=== PATIENT | female | born 1950 | race Caucasian/White ===

== ENCOUNTER 2020-06-29 10:38 | Emergency (ER) | payer MEDICARE, OTHER ==
[2020-06-29] MEDS ORDERED: NORMAL SALINE 1000 ML 1,000 ML IV ONE (11:01)
--- NOTE | 2020-06-29 11:01 | ER Document Report ---
ED Medical Screen (RME) - General Chief Complaint: Altered Mental Status Stated Complaint: ALTERED MENTAL Time Seen by Provider: 06/29/20 10:55 Primary Care Provider: JEANETTE LACY NP [Primary Care Provider] - Follow up as needed Mode of Arrival: Ambulatory Notes: Patient presents stating that she is been under a lot of stress recently and has been fasting for the past week not eating and not taking her medications appropriately. Patient complains of fast heart rate with leg cramps. Patient denies any chest pain or shortness of breath. Patient very anxious in triage. Patient states she was not taking her medications because she was fasting although she took some of her medications although is unable to say which ones she took. I have greeted and performed a rapid initial assessment of this patient. A comprehensive ED assessment and evaluation of the patient, analysis of test results and completion of the medical decision making process will be conducted by additional ED providers. TRAVEL OUTSIDE OF THE [place] IN LAST 30 DAYS: No - Related Data Allergies/Adverse Reactions: hyoscyamine Allergy (Verified 06/29/20 10:56) Physical Exam - Vital signs Vitals: Temp Pulse Resp BP Pulse Ox 98.1 F 132 H 16 182/99 H 98 06/29/20 10:42 06/29/20 10:42 06/29/20 10:42 06/29/20 10:42 06/29/20 10:42 - General General appearance: Alert, Anxious In distress: Mild Notes: Tachycardia, dry mucous membranes Course - Vital Signs Vital signs: Temp Pulse Resp BP Pulse Ox 98.1 F 132 H 16 182/99 H 98 06/29/20 10:42 06/29/20 10:42 06/29/20 10:42 06/29/20 10:42 06/29/20 10:42 Doctor's Discharge - Discharge Referrals: JEANETTE LACY NP [Primary Care Provider] - Follow up as needed
--- NOTE | 2020-06-29 11:35 | RADIOLOGY REPORT (SQ) ---
EXAM DESCRIPTION: CHEST SINGLE VIEW IMAGES COMPLETED DATE/TIME: 06/29/2020 10:16 am REASON FOR STUDY: palpitations. Altered mental status. COMPARISON: None. EXAM PARAMETERS: NUMBER OF VIEWS: One view. TECHNIQUE: Single frontal radiographic view of the chest acquired. RADIATION DOSE: NA LIMITATIONS: None. FINDINGS: LUNGS AND PLEURA: No opacities, masses or pneumothorax. No pleural effusion. MEDIASTINUM AND HILAR STRUCTURES: No masses. Contour normal. HEART AND VASCULAR STRUCTURES: Heart normal in size. Normal vasculature. BONES: No acute findings. HARDWARE: None in the chest. OTHER: No other significant finding. IMPRESSION: NO ACUTE RADIOGRAPHIC FINDING IN THE CHEST. TECHNICAL DOCUMENTATION: JOB ID: [id number] [employer]- All Rights Reserved Reading location - IP/workstation name: [email or web address]
--- NOTE | 2020-06-29 12:01 | EKG REPORT ---
SEVERITY:- ABNORMAL ECG - SINUS TACHYCARDIA PROBABLE LEFT ATRIAL ABNORMALITY LEFT VENTRICULAR HYPERTROPHY : Confirmed by: Nakul Chicas MD 29-Jun-2020 12:00:27
[2020-06-29 12:07] LABS: ABSOLUTE BASOPHILS # (AUTO) 0.1 10^3/uL (0.0-0.2); ABSOLUTE EOSINOPHILS # (AUTO) 0.1 10^3/uL (0.0-0.6); ABSOLUTE LYMPHOCYTES (AUTO) 1.3 10^3/uL (0.5-4.7); ABSOLUTE MONOCYTES (AUTO) 0.7 10^3/uL (0.1-1.4); ABSOLUTE NEUT (AUTO) 7.4 10^3/uL (1.7-8.2); BASOPHILS % (AUTO) 0.7 % (0-2); EOSINOPHILS % (AUTO) 0.6 % (0-6); HEMATOCRIT 36.2 % (36.0-47.0); HEMOGLOBIN 12.5 g/dL (12.0-15.5); LYMPHOCYTES % (AUTO) 13.8 % (13-45); MEAN CORPUSCULAR HEMOGLOBIN 28.2 pg (27.0-33.4); MEAN CORPUSCULAR HGB CONC 34.6 g/dL (32.0-36.0); MEAN CORPUSCULAR VOLUME 82 fl (80-97); MONOCYTES % (AUTO) 7.4 % (3-13); PLATELET COUNT 322 10^3/uL (150-450); RED BLOOD COUNT 4.44 10^6/uL (3.72-5.28); RED CELL DISTRIBUTION WIDTH 13.2 % (11.5-14.0); SEGMENTED NEUTROPHILS % (AUTO) 77.5 % (42-78); TOTAL CELLS COUNTED % (AUTO) 100 %; WHITE BLOOD COUNT 9.5 10^3/uL (4.0-10.5)
[2020-06-29 12:16] LABS: APPEARANCE,URINE SLIGHTLY-CLOUDY; BILIRUBIN,URINE NEGATIVE (NEGATIVE); COLOR,URINE YELLOW; GLUCOSE, URINE >=500 mg/dL (NEGATIVE); KETONES,URINE TRACE mg/dL (NEGATIVE); LEUKOCYTE ESTERASE,URINE NEGATIVE (NEGATIVE); NITRITE,URINE NEGATIVE (NEGATIVE); PROTEIN,URINE 30 mg/dL (NEGATIVE); URINE SPECIFIC GRAVITY 1.026; UROBILINOGEN,URINE NEGATIVE mg/dL (<2.0)
[2020-06-29 12:24] LABS: ALBUMIN 4.4 g/dL (3.5-5.0); ALKALINE PHOSPHATASE 77 U/L (38-126); ANION GAP 9 (5-19); ASPARTATE AMINO TRANSFERASE 36 U/L (14-36); BILIRUBIN,DIRECT 0.3 mg/dL (0.0-0.4); BILIRUBIN,TOTAL 0.4 mg/dL (0.2-1.3); BLOOD UREA NITROGEN 19 mg/dL (7-20); CALCIUM 9.5 mg/dL (8.4-10.2); CARBON DIOXIDE 22 mmol/L (22-30); CHLORIDE 96 mmol/L (98-107); CREATINE KINASE 821 U/L (30-135); GLUCOSE 150 mg/dL (75-110); POTASSIUM 4.2 mmol/L (3.6-5.0); TOTAL PROTEIN 7.4 g/dL (6.3-8.2)
[2020-06-29] MEDS ORDERED: LORAZEPAM 1 MG TABLET PO ONE (12:25)
--- NOTE | 2020-06-29 12:29 | ER Document Report ---
ED Cardiac - General Chief Complaint: Palpitations Stated Complaint: ALTERED MENTAL Time Seen by Provider: 06/29/20 10:55 Primary Care Provider: JEANETTE LACY NP [Primary Care Provider] - Follow up as needed Mode of Arrival: Ambulatory Notes: CHIEF COMPLAINT: Leg cramping, tachycardia HPI: 70-year-old female presenting for leg cramping and tachycardia. Patient states that she was fasting for the last week without eating or drinking as part of a "spiritual thing". Patient was brought in today because of elevated heart rate at her doctor's office as well as leg cramping. indicates that patient has been somewhat agitated over the last day or 2. Patient continually repeating that she does not want to be sent to [facility] because she is "not crazy". She denies chest pain shortness of breath abdominal pain. ROS: See HPI - all other systems were reviewed and are otherwise negative Constitutional: no fever Eyes: no drainage, no blurred vision ENT: no runny nose, no sore throat Cardiovascular: no chest pain Resp: no SOB, no cough GI: no vomiting, no diarrhea, no abdominal pain : no dysuria Integumentary: no rash Allergy: no hives Musculoskeletal: no extremity pain or swelling Neurological: no numbness/tingling, no weakness MEDICATIONS: I agree with the patient medications as charted by the RN. ALLERGIES: I agree with the allergies as charted by the RN. PAST MEDICAL HISTORY/PAST SURGICAL HISTORY: Reviewed and agree as charted by RN. SOCIAL HISTORY: Reviewed and agree as charted by RN. FAMILY HISTORY: No significant familial comorbid conditions directly related to patient complaint EXAM: Reviewed vital signs as charted by RN. CONSTITUTIONAL: Alert and oriented and responds appropriately to questions. Well-appearing; well-nourished HEAD: Normocephalic; atraumatic EYES: PERRL; Conjunctivae clear, sclerae non-icteric ENT: normal nose; no rhinorrhea; moist mucous membranes; pharynx without lesions noted, no uvula edema or deviation, no tonsillar hypertrophy, phonation normal NECK: Supple without meningismus; non-tender; no cervical lymphadenopathy, no masses CARD: Patient is tachycardic with a heart rate of 125 on the monitor; no murmurs, no clicks, no rubs, no gallops; symmetric distal pulses RESP: Normal chest excursion without splinting or tachypnea; breath sounds clear and equal bilaterally; no wheezes, no rhonchi, no rales, pulse oximetry 95% on room air not hypoxic ABD/GI: Normal bowel sounds; non-distended; soft, non-tender, no rebound, no guarding; no palpable organomegaly or masses. BACK: The back appears normal and is non-tender to palpation, there is no CVA tenderness EXT: Normal ROM in all joints; non-tender to palpation; no cyanosis, no effusions, no edema SKIN: Normal color for age and race; warm; dry; good turgor; no acute lesions noted NEURO: Moves all extremities equally; Motor and sensory function intact PSYCH: The patient's mood and manner are agitated and repetitive. Grooming and personal hygiene are appropriate. MDM: EKG sinus tachycardia with a ventricular rate of 131. Left ventricular hypertrophy noted abnormal EKG. DC 144 QT 284, QTc 420. Interpreted by emergency department physicians. Very difficult to obtain history from the patient she is very distracted, continually repeating that she does not want to be sent to a psychiatric facility. She states that she has been off of her me dications which include Synthroid and her blood pressure medications and Metformin for the last week while fasting. States she believes she is just dehydrated. Initial screening labs ordered by triage process. Will continue IV fluids, give Ativan for patient's agitation awaiting lab results to reassess TRAVEL OUTSIDE OF THE [place] IN LAST 30 DAYS: No - Related Data Allergies/Adverse Reactions: hyoscyamine Allergy (Verified 06/29/20 10:56) Past Medical History - Social History Smoking Status: Never Smoker Family History: Reviewed & Not Pertinent - Past Medical History Cardiac Medical History: Reports: Hx Hypertension Past Surgical History: Reports: Hx Appendectomy, Hx Breast Surgery, Hx Thyroid Surgery Physical Exam - Vital signs Vitals: Temp Pulse Resp BP Pulse Ox 98.1 F 132 H 16 182/99 H 98 06/29/20 10:42 06/29/20 10:42 06/29/20 10:42 06/29/20 10:42 06/29/20 10:42 Course - Re-evaluation Re-evalutation: 06/29/20 14:[address] Cid, attending. Patient heart rate remains at 110-1 13. Patient is much calmer after the Ativan. She is answering all questions appropriately now. We discussed her lab results. Patient is mildly hyperthyroid. She will continue to hold her Synthroid for another 3 days and follow-up with her PCP for recheck of this. She is not manic at this time. She denies suicidal or homicidal ideation. Plan to discharge home after IV hydration, given precautions about fasting. She verbalizes understanding. - Vital Signs Vital signs: Temp Pulse Resp BP Pulse Ox 98.1 F 124 H 28 H 141/65 H 92 06/29/20 10:42 06/29/20 11:49 06/29/20 12:01 06/29/20 12:01 06/29/20 12:01 - Laboratory Results Result Diagrams: 06/29/20 11:24 06/29/20 11:24 Laboratory Results Interpreted: 06/29/20 06/29/20 06/29/20 11:24 11:24 11:24 Sodium 127.4 L Chloride 96 L Glucose 150 H Creatine Kinase 821 H TSH 0.27 L Urine Protein 30 H Urine Glucose (UA) >=500 H Urine Ketones TRACE H Urine Ascorbic Acid 40 H Critical Laboratory Results Reviewed: No Critical Results - Radiology Results Critical Radiology Results Reviewed: No Critical Results Discharge - Discharge Clinical Impression: Tachycardia, Hyperthyroidism, Dehydration Condition: Stable Disposition: HOME, SELF-CARE Additional Instructions: Continue to hold her Synthroid for another 3 days and follow-up with your primary care provider to restart this medication as they may need to change her dose especially if your level is still low and you have been not taking the medication over the last week. Make sure that you are hydrating well at home to prevent further dehydration and concerns. Referrals: JEANETTE LACY NP [Primary Care Provider] - Follow up as needed
[2020-06-29] MEDS: NORMAL SALINE 1000 ML 1,000 ML IV ONE ×2 (12:32→13:10)
[2020-06-29 12:41] LABS: FREE T3 3.66 pg/mL (2.77-5.27); FREE T4 (FREE THYROXINE) 2.16 ng/dL (0.78-2.19)
[2020-06-29 12:54] LABS: THYROID STIMULATING HORMONE 0.27 uIU/mL (0.47-4.68)
[2020-06-29] MEDS ORDERED: KETOROLAC TROMETHAMINE INJ/PF 30 MG/1 ML SDV IV ONE (12:56)
[2020-06-29 14:20] VITALS: BP 126/62
== END 2020-06-29 14:26 | disposition home or self-care (01) ==
LOC: ER 10:38
DX: E05.90 Thyrotoxicosis, unspecified without thyrotoxic crisis or storm (principal); E86.0 Dehydration; R00.0 Tachycardia, unspecified; R25.2 Cramp and spasm; I11.9 Hypertensive heart disease without heart failure; Z88.8 Allergy status to other drugs, medicaments and biological substances
CPT/HCPCS: 93005; 99285; 96361; 96374; 36415; 84439; 82550; 83735; 84443; 85025; 80053; 81001; 84484; 84481; 71045; 93010; J1885; A9270; J7030